=== PATIENT | female | born 1980 | race Two or more races ===

== ENCOUNTER 2022-08-31 07:24 | Emergency (ER) | payer MEDICAID ==
[~2022-08-31] VITALS: Ht 175.3 cm; Wt 78.7 kg
[2022-08-31] MEDS ORDERED: cloNIDine HCL 0.1 MG TAB PO ONE (08:00)
[2022-08-31] MEDS ORDERED: MET50T PO (09:37)
[2022-08-31] MEDS ORDERED: IBUP800T27 PO (09:37)
[2022-08-31 09:38] VITALS: BP 147/95
== END 2022-08-31 09:42 | disposition home or self-care (01) ==
LOC: ER 07:24
DX: M79.662 Pain in left lower leg (principal); M54.32 Sciatica, left side; I10 Essential (primary) hypertension; Z88.6 Allergy status to analgesic agent
CPT/HCPCS: 93971